=== PATIENT | female | born 1940 | race Caucasian/White ===

== ENCOUNTER → 2017-05-07 | Outpatient (CLI) | payer MEDICARE | LOC: RAH 09:50 | PROVIDERS: ATTEND Internal Medicine Gastroenterology | DX: R63.4 Abnormal weight loss (principal) | CPT/HCPCS: 71046; 76700 ==

== ENCOUNTER 2020-12-20 04:36 | Inpatient (IN) | payer MEDICARE ==
[~2020-12-20] VITALS: Ht 160 cm; Wt 51.2 kg
[2020-12-20] MEDS ORDERED: METF-446 PO (04:48)
[2020-12-20] MEDS ORDERED: ASPI-1197 PO (04:49)
[2020-12-20] MEDS ORDERED: ALPR0.255 PO (04:50)
[2020-12-20] MEDS ORDERED: FURO20TA4 PO (04:51)
[2020-12-20] MEDS ORDERED: OMEP40CA21 PO (04:52)
[2020-12-20] MEDS ORDERED: RIVA15TA PO (04:53)
[2020-12-20] MEDS ORDERED: LISI40TA9 PO (04:54)
[2020-12-20] MEDS ORDERED: AMLO-258 PO (04:55)
[2020-12-20] MEDS ORDERED: SERT-440 PO (04:56)
[2020-12-20] MEDS ORDERED: HYDR-4068 PO (04:58)
[2020-12-20] MEDS ORDERED: PRAV40TA3 PO (04:59)
[2020-12-20] MEDS ORDERED: SOLU-MEDROL 125MG VIAL IVP ONE (05:00)
[2020-12-20] MEDS ORDERED: ALBUTEROL 0.083% 2.5 MG/3 ML INH IH ONE (05:00)
[2020-12-20] MEDS ORDERED: IPRATROPIUM/ALBUTEROL SULFATE 3 ML SOLUTION IH ONE (05:00)
[2020-12-20] MEDS ORDERED: CEFTRIAXONE 1G VIAL IVP ONE (05:00)
[2020-12-20 05:02] LABS: ABG HCO3 22.9 mmol/L (21.0-28.0); ABG PCO2 44 mmHg (32-45)
[2020-12-20 05:05] LABS: BASOPHILS % (AUTO) 0.5 % (0.0-5.0); EOSINOPHILS % (AUTO) 1.2 % (0.0-8.0); HEMATOCRIT 40.6 % (36-48); LYMPHOCYTES % (AUTO) 14.2 % (21.0-51.0); MEAN CORPUSCULAR HEMOGLOBIN 29.1 pg (27.0-33.0); MONOCYTES % (AUTO) 5.9 % (3.0-13.0); NEUTROPHILS % (AUTO) 77.7 % (40.0-77.0); PLATELET COUNT (AUTO) 414 K/uL (130-400); RED BLOOD CELL COUNT(AUTO) 4.46 MIL/uL (4.00-5.50); RED CELL DISTRIBUTION WIDTH 13.5 % (11.0-15.5); WHITE BLOOD COUNT (AUTO) 26.9 K/uL (4.8-10.8)
[2020-12-20 05:18] LABS: CARBON DIOXIDE 29 mmol/L (21-32); CHLORIDE 105 mmol/L (101-111); CREATININE 0.6 mg/dL (0.5-1.5); GLOMERULAR FILTR. RATE CALC 102 mL/min (>60); GLUCOSE,RANDOM 240 mg/dL (70-105); POTASSIUM 4.3 mmol/L (3.5-5.1); SODIUM SERUM 143 mmol/L (136-145); UREA NITROGEN, BLOOD 13 mg/dL (7-18)
[2020-12-20 05:22] LABS: ALANINE AMINOTRANSFERASE 37 U/L (12-78); ALBUMIN 3.6 g/dL (3.5-5.0); ASPARTATE AMINOTRANSFERASE 32 U/L (10-37); BILIRUBIN,TOTAL 0.2 mg/dL (0.2-1.0); TOTAL PROTEIN, SERUM 7.7 g/dL (6.0-8.3)
[2020-12-20 05:26] LABS: B-TYPE NATRIURETIC PEPTIDE 1000 pg/mL (0-100)
[2020-12-20] MEDS ORDERED: AZITHROMYCIN 500MG+NS 250ML IV ONE (05:30)
[2020-12-20 05:32] LABS: LIPASE < 50 U/L (114-286)
[2020-12-20] MEDS ORDERED: SOLU-MEDROL 125MG VIAL ONE (06:18)
[2020-12-20] MEDS ORDERED: CEFTRIAXONE 1G VIAL ONE (06:19)
[2020-12-20] MEDS ORDERED: ASPIRIN 325MG TAB PO ONE (06:30)
[2020-12-20] MEDS ORDERED: 0.9% NACL 250ML IVPB SCH (07:00)
[2020-12-20] MEDS ORDERED: DiphenhydrAMINE HCL 50 MG/ML VIAL IV PRN (07:00)
[2020-12-20] MEDS ORDERED: CEFTRIAXONE 1G VIAL IV SCH (07:00)
[2020-12-20] MEDS ORDERED: SOLU-MEDROL 125MG VIAL IV SCH (07:00)
[2020-12-20] MEDS ORDERED: ONDANSETRON 4MG INJ IV PRN (07:00)
[2020-12-20] MEDS ORDERED: ACETAMINOPHEN 325 MG TAB PO PRN (07:00)
[2020-12-20] MEDS ORDERED: ZOLPIDEM TARTRATE 5 MG TAB PO PRN (07:00)
[2020-12-20] MEDS ORDERED: GLUCAGON 1MG KIT 1 MG ML IM PRN (07:00)
[2020-12-20] MEDS ORDERED: DIPHENHYDRAMINE HCL 25 MG CAPSULE PO PRN (07:00)
[2020-12-20] MEDS ORDERED: AZITHROMYCIN 500MG VIAL IVPB SCH (07:00)
[2020-12-20] MEDS ORDERED: GUAIFENESIN-DM 200/20 MG 10 ML PO PRN (07:00)
[2020-12-20] MEDS ORDERED: 0.9%NACL 1000ML 1,000 ML IV SCH (07:00)
[2020-12-20] MEDS ORDERED: NITROGLYCERIN 0.4 MG SL TAB SL PRN (07:00)
[2020-12-20] MEDS ORDERED: DEXTROSE 50%-WATER 50 ML DISP.SYRIN IV PRN (07:00)
[2020-12-20] MEDS: FUROSEMIDE 20MG VIAL IV SCH (08:30)
[2020-12-20] MEDS: METOPROLOL TARTRATE 25 MG TAB PO SCH ×2 (08:31→20:37)
[2020-12-20] MEDS: FAMOTIDINE 20MG TAB PO SCH ×2 (08:31→20:36)
[2020-12-20] MEDS: INSULIN HUMULIN R 100 UNIT/ML 3ML SQ SCH ×4 (08:34→20:37)
[2020-12-20] MEDS ORDERED: ENOXAPARIN SODIUM 30 MG/0.3 ML SQ SCH (09:00)
[2020-12-20] MEDS ORDERED: ALBUTEROL 0.083% 2.5 MG/3 ML INH IH SCH (10:00)
[2020-12-20] MEDS: NICOTINE 21 MG/ 24 HR PATCH TD SCH (10:00)
[2020-12-20] MEDS ORDERED: IPRATROPIUM 0.5 MG/2.5 ML INH IH ONE (10:04)
[2020-12-20] MEDS ORDERED: ALPRAZOLAM 0.25 MG TABLET ONE (10:05)
[2020-12-20] MEDS ORDERED: ALPRAZOLAM 0.25 MG TABLET PO ONE (10:30)
[2020-12-20] MEDS: LACTATED RINGERS 1000ML 1,000 ML IV SCH ×2 (11:26→23:20)
[2020-12-20] MEDS ORDERED: IPRATROPIUM 0.5 MG/2.5 ML INH IH SCH (12:00)
[2020-12-20] MEDS: IPRATROPIUM/ALBUTEROL SULFATE 3 ML SOLUTION IH SCH ×3 (14:04→23:19)
[2020-12-20 16:44] VITALS: BP 141/79
[2020-12-20 20:00] VITALS: BP 162/81
[2020-12-20] MEDS: APIXABAN 2.5 MG TABLET PO SCH (20:36)
[2020-12-20] MEDS: SOLU-MEDROL 40MG VIAL IVP SCH (20:37)
[2020-12-20] MEDS: ACETAMINOPHEN 325 MG TAB PO PRN (20:39)
[2020-12-20 23:04] VITALS: BP 148/91
[2020-12-20] MEDS ORDERED: SODIUM CHLORIDE 7% INHALATION 4 ML VIAL.NEB IH ONE (23:24)
[2020-12-20 23:26] LABS: CREATINE KINASE, TOTAL 57 U/L (21-232); MYOGLOBIN 52 ng/mL (10-92)
[2020-12-21] MEDS: ACETAMINOPHEN 325 MG TAB PO PRN (01:56)
[2020-12-21 03:14] VITALS: BP 146/92
[2020-12-21 05:19] LABS: BASOPHILS % (AUTO) 0.2 % (0.0-5.0); HEMATOCRIT 37.3 % (36-48); LYMPHOCYTES % (AUTO) 8.1 % (21.0-51.0); MEAN CORPUSCULAR HEMOGLOBIN 28.9 pg (27.0-33.0); MEAN CORPUSCULAR HGB CONC 31.9 g/dL (32.0-36.0); MEAN CORPUSCULAR VOLUME 90.5 fL (79-99); MONOCYTES % (AUTO) 5.8 % (3.0-13.0); NEUTROPHILS % (AUTO) 85.3 % (40.0-77.0); PLATELET COUNT (AUTO) 386 K/uL (130-400); RED BLOOD CELL COUNT(AUTO) 4.12 MIL/uL (4.00-5.50); RED CELL DISTRIBUTION WIDTH 13.6 % (11.0-15.5)
[2020-12-21 05:37] LABS: ALBUMIN 3.4 g/dL (3.5-5.0); BILIRUBIN,TOTAL 0.4 mg/dL (0.2-1.0); CREATININE 0.7 mg/dL (0.5-1.5); POTASSIUM 4.4 mmol/L (3.5-5.1); TOTAL PROTEIN, SERUM 7.4 g/dL (6.0-8.3)
[2020-12-21] MEDS: INSULIN HUMULIN R 100 UNIT/ML 3ML SQ SCH ×4 (05:58→21:27)
[2020-12-21] MEDS ORDERED: SODIUM CHLORIDE 7% INHALATION 4 ML VIAL.NEB IH ONE (06:12)
[2020-12-21] MEDS: IPRATROPIUM/ALBUTEROL SULFATE 3 ML SOLUTION IH SCH ×3 (06:14→19:40)
[2020-12-21 08:10] VITALS: BP 110/56
[2020-12-21] MEDS: 0.9% NACL 250ML IVPB SCH (09:00)
[2020-12-21] MEDS ORDERED: AZITHROMYCIN 500MG VIAL IVPB SCH (09:00)
[2020-12-21] MEDS ORDERED: AZITHROMYCIN 500MG+NS 250ML IV SCH (09:00)
[2020-12-21] MEDS: APIXABAN 2.5 MG TABLET PO SCH ×2 (10:00→20:38)
[2020-12-21] MEDS: FAMOTIDINE 20MG TAB PO SCH ×2 (10:00→20:39)
[2020-12-21] MEDS: METOPROLOL TARTRATE 25 MG TAB PO SCH ×2 (10:00→20:38)
[2020-12-21] MEDS: CEFTRIAXONE 1G VIAL IV SCH (10:01)
[2020-12-21] MEDS: SOLU-MEDROL 40MG VIAL IVP SCH ×2 (10:01→20:37)
[2020-12-21] MEDS: FUROSEMIDE 20MG VIAL IV SCH (10:01)
[2020-12-21] MEDS: NICOTINE 21 MG/ 24 HR PATCH TD SCH (10:02)
[2020-12-21] MEDS ORDERED: LORAZEPAM 2 MG/ML 1 ML VIAL ONE (10:22)
[2020-12-21] MEDS ORDERED: LORAZEPAM 2 MG/ML 1 ML VIAL IVP SCH (10:30)
[2020-12-21] MEDS ORDERED: MORPHINE 10 MG SYG IVP PRN ×2 (10:30→11:30)
[2020-12-21] MEDS ORDERED: MORPHINE 2 MG SYG ONE (11:11)
[2020-12-21] MEDS ORDERED: PHARMACY COMMUNICATION MISC SCH (11:30)
[2020-12-21] MEDS ORDERED: LORAZEPAM 2 MG/ML 1 ML VIAL IVP PRN (11:30)
[2020-12-21] MEDS ORDERED: MORPHINE PCA 50MG/50ML 50 ML IV PRN (11:30)
[2020-12-21 11:40] VITALS: BP 161/68
[2020-12-21] MEDS: AZITHROMYCIN 500MG+NS 250ML IV SCH (12:59)
[2020-12-21 16:21] VITALS: BP 118/58
[2020-12-21] MEDS ORDERED: SODIUM CHLORIDE 3% FOR INHALATION 4 ML/AMP VIAL.NEB IH ONE (19:45)
[2020-12-21 20:00] VITALS: BP 128/70
[2020-12-22] VITALS: BP 115/66
[2020-12-22] MEDS: IPRATROPIUM/ALBUTEROL SULFATE 3 ML SOLUTION IH SCH ×2 (00:47→06:24)
[2020-12-22 04:00] VITALS: BP 133/73
[2020-12-22 04:58] LABS: BASOPHILS % (AUTO) 0.2 % (0.0-5.0); HEMATOCRIT 32.9 % (36-48); LYMPHOCYTES % (AUTO) 6.2 % (21.0-51.0); MEAN CORPUSCULAR HEMOGLOBIN 29.4 pg (27.0-33.0); MEAN CORPUSCULAR HGB CONC 31.9 g/dL (32.0-36.0); MEAN CORPUSCULAR VOLUME 92.2 fL (79-99); MONOCYTES % (AUTO) 3.8 % (3.0-13.0); NEUTROPHILS % (AUTO) 89.4 % (40.0-77.0); PLATELET COUNT (AUTO) 307 K/uL (130-400); RED BLOOD CELL COUNT(AUTO) 3.57 MIL/uL (4.00-5.50); RED CELL DISTRIBUTION WIDTH 13.8 % (11.0-15.5); WHITE BLOOD COUNT (AUTO) 10.5 K/uL (4.8-10.8)
[2020-12-22 05:16] LABS: CREATININE 0.7 mg/dL (0.5-1.5); POTASSIUM 4.4 mmol/L (3.5-5.1)
[2020-12-22] MEDS: INSULIN HUMULIN R 100 UNIT/ML 3ML SQ SCH ×4 (06:17→21:52)
[2020-12-22 07:45] VITALS: BP 115/62
[2020-12-22] MEDS: CLONAZEPAM 0.5 MG TABLET PO SCH (10:11)
[2020-12-22] MEDS: APIXABAN 2.5 MG TABLET PO SCH ×2 (10:11→21:51)
[2020-12-22] MEDS: FAMOTIDINE 20MG TAB PO SCH ×2 (10:11→21:51)
[2020-12-22] MEDS: CEFTRIAXONE 1G VIAL IV SCH (10:13)
[2020-12-22] MEDS: FUROSEMIDE 20MG VIAL IV SCH (10:13)
[2020-12-22] MEDS: 0.9% NACL 250ML IVPB SCH (10:23)
[2020-12-22] MEDS: SOLU-MEDROL 40MG VIAL IVP SCH ×2 (10:23→21:50)
[2020-12-22] MEDS: NICOTINE 21 MG/ 24 HR PATCH TD SCH (10:24)
[2020-12-22] MEDS: AZITHROMYCIN 500MG+NS 250ML IV SCH (10:24)
[2020-12-22 11:46] VITALS: BP 117/60
[2020-12-22] MEDS: RISPERIDONE 0.5 MG TABLET PO SCH (12:42)
[2020-12-22 15:23] VITALS: BP 123/68
[2020-12-22] MEDS: IPRATROPIUM 0.5 MG/2.5 ML INH IH SCH (18:36)
[2020-12-22] MEDS: ALBUTEROL 0.042% 1.25MG/3ML IH SCH (18:36)
[2020-12-22] MEDS: BUDESONIDE 0.5 MG/2 ML INH IH SCH (18:36)
[2020-12-22] MEDS: ALPRAZOLAM 0.5 MG TABLET PO PRN (19:39)
[2020-12-22 20:00] VITALS: BP 137/71
[2020-12-22] MEDS ORDERED: IPRATROPIUM 0.5 MG/2.5 ML INH IH SCH (21:00)
[2020-12-22] MEDS ORDERED: ALBUTEROL 0.042% 1.25MG/3ML IH SCH (21:00)
[2020-12-22] MEDS: CARVEDILOL 3.125 MG TABLET PO SCH (21:50)
[2020-12-22] MEDS: MORPHINE 2 MG SYG IVP PRN (21:56)
[2020-12-23] VITALS: BP 123/70
[2020-12-23] MEDS: MORPHINE 2 MG SYG IVP PRN ×4 (01:21→23:49)
[2020-12-23] MEDS: ALPRAZOLAM 0.5 MG TABLET PO PRN ×3 (01:57→23:49)
[2020-12-23 04:00] VITALS: BP 127/69
[2020-12-23 04:08] LABS: BASOPHILS % (AUTO) 0.1 % (0.0-5.0); EOSINOPHILS % (AUTO) 1.9 % (0.0-8.0); LYMPHOCYTES % (AUTO) 7.9 % (21.0-51.0); MEAN CORPUSCULAR HEMOGLOBIN 29.3 pg (27.0-33.0); MEAN CORPUSCULAR HGB CONC 32.9 g/dL (32.0-36.0); MEAN CORPUSCULAR VOLUME 89.1 fL (79-99); MONOCYTES % (AUTO) 5.3 % (3.0-13.0); NEUTROPHILS % (AUTO) 84.4 % (40.0-77.0); PLATELET COUNT (AUTO) 303 K/uL (130-400); RED BLOOD CELL COUNT(AUTO) 3.48 MIL/uL (4.00-5.50); RED CELL DISTRIBUTION WIDTH 13.6 % (11.0-15.5); WHITE BLOOD COUNT (AUTO) 7.9 K/uL (4.8-10.8)
[2020-12-23 04:21] LABS: CREATININE 0.6 mg/dL (0.5-1.5); POTASSIUM 4.6 mmol/L (3.5-5.1)
[2020-12-23] MEDS: ALBUTEROL 0.042% 1.25MG/3ML IH SCH ×2 (06:24→18:24)
[2020-12-23] MEDS: IPRATROPIUM 0.5 MG/2.5 ML INH IH SCH ×2 (06:24→18:24)
[2020-12-23] MEDS: BUDESONIDE 0.5 MG/2 ML INH IH SCH ×2 (06:24→18:24)
[2020-12-23] MEDS: INSULIN HUMULIN R 100 UNIT/ML 3ML SQ SCH ×4 (06:30→21:13)
[2020-12-23 08:07] VITALS: BP 120/64
[2020-12-23] MEDS: RISPERIDONE 0.5 MG TABLET PO SCH (09:00)
[2020-12-23] MEDS: CLONAZEPAM 0.5 MG TABLET PO SCH (09:05)
[2020-12-23] MEDS: SOLU-MEDROL 40MG VIAL IVP SCH ×2 (09:05→21:12)
[2020-12-23] MEDS: AZITHROMYCIN 500MG+NS 250ML IV SCH (09:05)
[2020-12-23] MEDS: CEFTRIAXONE 1G VIAL IV SCH (09:05)
[2020-12-23] MEDS: APIXABAN 2.5 MG TABLET PO SCH ×2 (09:06→21:12)
[2020-12-23] MEDS: FUROSEMIDE 20MG VIAL IV SCH (09:06)
[2020-12-23] MEDS: FAMOTIDINE 20MG TAB PO SCH ×2 (09:06→21:11)
[2020-12-23] MEDS: CARVEDILOL 3.125 MG TABLET PO SCH ×2 (09:06→21:12)
[2020-12-23] MEDS: 0.9% NACL 250ML IVPB SCH (09:07)
[2020-12-23] MEDS: NICOTINE 21 MG/ 24 HR PATCH TD SCH (09:07)
[2020-12-23 11:40] VITALS: BP 126/66
[2020-12-23 16:00] VITALS: BP 142/77
[2020-12-23 20:00] VITALS: BP 149/75
[2020-12-24] VITALS: BP 157/77
[2020-12-24] MEDS: MORPHINE 2 MG SYG IVP PRN ×6 (03:41→23:18)
[2020-12-24 04:00] VITALS: BP 107/59
[2020-12-24 05:06] LABS: BASOPHILS % (AUTO) 0.2 % (0.0-5.0); HEMATOCRIT 33.2 % (36-48); LYMPHOCYTES % (AUTO) 7.8 % (21.0-51.0); MEAN CORPUSCULAR HGB CONC 32.2 g/dL (32.0-36.0); MONOCYTES % (AUTO) 4.6 % (3.0-13.0); NEUTROPHILS % (AUTO) 86.6 % (40.0-77.0); PLATELET COUNT (AUTO) 322 K/uL (130-400); RED BLOOD CELL COUNT(AUTO) 3.69 MIL/uL (4.00-5.50); RED CELL DISTRIBUTION WIDTH 13.2 % (11.0-15.5); WHITE BLOOD COUNT (AUTO) 11.9 K/uL (4.8-10.8)
[2020-12-24 05:16] LABS: CREATININE 0.6 mg/dL (0.5-1.5); POTASSIUM 4.3 mmol/L (3.5-5.1)
[2020-12-24] MEDS: BUDESONIDE 0.5 MG/2 ML INH IH SCH ×2 (06:16→18:56)
[2020-12-24] MEDS: IPRATROPIUM 0.5 MG/2.5 ML INH IH SCH ×2 (06:16→18:55)
[2020-12-24] MEDS: ALBUTEROL 0.042% 1.25MG/3ML IH SCH ×2 (06:16→18:56)
[2020-12-24] MEDS: INSULIN HUMULIN R 100 UNIT/ML 3ML SQ SCH ×4 (07:08→20:45)
[2020-12-24] MEDS: AZITHROMYCIN 500MG+NS 250ML IV SCH (07:16)
[2020-12-24] MEDS: CEFTRIAXONE 1G VIAL IV SCH (07:16)
[2020-12-24] MEDS: FUROSEMIDE 20MG VIAL IV SCH (07:17)
[2020-12-24] MEDS: CLONAZEPAM 0.5 MG TABLET PO SCH (07:18)
[2020-12-24] MEDS: SOLU-MEDROL 40MG VIAL IVP SCH ×2 (07:18→20:00)
[2020-12-24] MEDS: APIXABAN 2.5 MG TABLET PO SCH ×2 (07:18→20:00)
[2020-12-24] MEDS: FAMOTIDINE 20MG TAB PO SCH ×2 (07:18→19:59)
[2020-12-24] MEDS: CARVEDILOL 3.125 MG TABLET PO SCH ×2 (07:18→19:59)
[2020-12-24] MEDS: 0.9% NACL 250ML IVPB SCH (07:19)
[2020-12-24] MEDS: NICOTINE 21 MG/ 24 HR PATCH TD SCH (07:20)
[2020-12-24] MEDS: RISPERIDONE 0.5 MG TABLET PO SCH (08:33)
[2020-12-24 08:54] VITALS: BP 159/76
[2020-12-24] MEDS ORDERED: PHARMACY COMMUNICATION MISC SCH ×2 (09:00→09:05)
[2020-12-24] MEDS ORDERED: PHENOL 177 ML BOTTLE PO PRN (09:00)
[2020-12-24 11:33] VITALS: BP 141/65
[2020-12-24] MEDS: ALPRAZOLAM 0.5 MG TABLET PO PRN ×3 (12:17→23:16)
[2020-12-24 15:48] VITALS: BP 149/78
[2020-12-24 20:00] VITALS: BP 154/85
[2020-12-24] MEDS: CEFDINIR 250MG/5ML 60ML BOTTLE PO SCH (20:43)
[2020-12-25] VITALS: BP 139/68
[2020-12-25] MEDS: MORPHINE 2 MG SYG IVP PRN ×2 (01:52→09:01)
[2020-12-25 04:00] VITALS: BP 138/81
[2020-12-25] MEDS: BUDESONIDE 0.5 MG/2 ML INH IH SCH (06:15)
[2020-12-25] MEDS: IPRATROPIUM 0.5 MG/2.5 ML INH IH SCH (06:15)
[2020-12-25] MEDS: ALBUTEROL 0.042% 1.25MG/3ML IH SCH (06:15)
[2020-12-25] MEDS: INSULIN HUMULIN R 100 UNIT/ML 3ML SQ SCH ×2 (06:37→11:49)
[2020-12-25 08:20] VITALS: BP 152/73
[2020-12-25] MEDS: RISPERIDONE 0.5 MG TABLET PO SCH (08:55)
[2020-12-25] MEDS: FAMOTIDINE 20MG TAB PO SCH (08:55)
[2020-12-25] MEDS: CARVEDILOL 3.125 MG TABLET PO SCH (08:56)
[2020-12-25] MEDS: APIXABAN 2.5 MG TABLET PO SCH (08:56)
[2020-12-25] MEDS: AZITHROMYCIN 500MG+NS 250ML IV SCH (08:56)
[2020-12-25] MEDS: SOLU-MEDROL 40MG VIAL IVP SCH (08:56)
[2020-12-25] MEDS: 0.9% NACL 250ML IVPB SCH (08:57)
[2020-12-25] MEDS: FUROSEMIDE 20MG VIAL IV SCH (08:57)
[2020-12-25] MEDS: NICOTINE 21 MG/ 24 HR PATCH TD SCH (08:58)
[2020-12-25] MEDS: CLONAZEPAM 0.5 MG TABLET PO SCH (09:01)
[2020-12-25] MEDS: CEFDINIR 250MG/5ML 60ML BOTTLE PO SCH (09:01)
[2020-12-25 11:42] VITALS: BP 153/76
[2020-12-25] MEDS ORDERED: IPRATROPIUM/ALBUTEROL SULFATE 3 ML SOLUTION IH SCH (14:00)
[2020-12-25] MEDS ORDERED: CEFD250S3 PO (14:12)
[2020-12-25] MEDS ORDERED: PRED20B PO (14:12)
[2020-12-25] MEDS ORDERED: APIX2.5T PO (14:12)
[2020-12-25] MEDS ORDERED: CARV3.1262 PO (14:12)
[2020-12-25] MEDS ORDERED: NICO-777 TD (14:12)
[2020-12-25 15:35] VITALS: BP 137/67
[2020-12-25] MEDS: ALPRAZOLAM 0.5 MG TABLET PO PRN (15:51)
[2020-12-25] MEDS ORDERED: PREDNISONE 20 MG TABLET PO SCH (21:00)
== END 2020-12-25 16:00 | disposition hospice, home (50) | DRG 193 ==
LOC: EDH 04:36 → EDHIP 06:44 → 4DH 16:15
PROVIDERS: ADMIT Hospitalist; ATTEND Hospitalist
PROC: 5A09457 Assistance with Respiratory Ventilation, 24-96 Consecutive Hours, Continuous Positive Airway Pressure (ICD-10-PCS; principal; 2020-12-20)
DX: J18.9 Pneumonia, unspecified organism (principal); J96.01 Acute respiratory failure with hypoxia; I50.33 Acute on chronic diastolic (congestive) heart failure; F17.200 Nicotine dependence, unspecified, uncomplicated; Z20.822 Contact with and (suspected) exposure to COVID-19; F32.A Depression, unspecified; E11.9 Type 2 diabetes mellitus without complications; R53.81 Other malaise; I25.10 Atherosclerotic heart disease of native coronary artery without angina pectoris; N20.0 Calculus of kidney; Z66 Do not resuscitate; I11.0 Hypertensive heart disease with heart failure; J43.9 Emphysema, unspecified; J20.9 Acute bronchitis, unspecified; Y95 Nosocomial condition; Z51.5 Encounter for palliative care; Z79.01 Long term (current) use of anticoagulants; Z99.81 Dependence on supplemental oxygen; I25.2 Old myocardial infarction; Z95.5 Presence of coronary angioplasty implant and graft; Z86.718 Personal history of other venous thrombosis and embolism
CPT/HCPCS: 36415; 36600; 71045; 71250; 80048; 80053; 82550; 82803; 82948; 83605; 83690; 83874; 83880; 84145; 84484; 85025; 87040; 87635; 87804; 93005; 94640; 94660; 94664; 94760; 97039; C9803; G0378; J0456; J0696; J1650; J1815; J1940; J2060; J2270; J2920; J2930; J7050; J7120; Q0163